=== PATIENT | male | born 2005 | race Caucasian/White ===

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

== ENCOUNTER 2024-10-19 12:34 | Emergency (ER) | payer SELFPAY ==
[2024-10-19 12:35] VITALS: BP 145/80; PULSE 98; RESP 16; TEMP 36.3; O2SAT 99; BMI 27.1
[2024-10-19] MEDS: Diphth,Pertuss(Acell),Tet Vac 0.5 ML Vial IM (14:00)
--- NOTE | 2024-10-19 14:03 | RAD_ITS ---
PROCEDURE: FINGER(S) MIN 2 VIEWS REASON FOR EXAM: Injury TECHNIQUE: 3 view(s) of the left 3rd finger COMPARISON: None FINDINGS: No visible fracture. Normal alignment. Soft tissues are unremarkable. RAD/Finger(s) Min 2 Views IMPRESSION: No acute osseous abnormality of the left 3rd finger Reading Location: [facility]
--- NOTE | 2024-10-19 14:08 | EDS_ITS ---
<Statement entered by Sundeep Santoyo DO - 10/19/24 15:52> Patient was seen and examined with nurse chad Bain All components of the history and physical confirmed and agreed. History of present illness and physical exam: Patient is a 19-year-old male with no known significant past medical history who presents to the emergency department with chief complaint of injury to the left third finger. He states that he was using a table saw and states that he got his finger caught and cut on the table saw. He states that he does not know when his last tetanus shot was. Patient states that his significant other wanted him to come here to be evaluated. Review of systems: Agree with above Physical exam: Agree with above will add on patient was able to be the okay sign thumbs up and oppose his thumb to his pinky is bilateral without difficulty he is able to abduct adduct his fingers fully flex and extend his fingers bilaterally. Patient has sensation gross intact in median ulnar and radial nerve distributions. MDM Patient is a 19-year-old male who presented to the emerged part with chief complaint of left third finger injury by cutting it on a table saw. On the differential diagnose includes Melamin to skin abrasion, laceration, fracture. Once workup is obtained reviewed he will be reevaluated. Patient's x-ray reviewed by myself by radiology showed no acute osseous abnormality of third finger. Patient's tetanus shot was updated here today. Patient was advised to do Dreft soaks 2-3 times a day and watch out for signs of infection. He is advised to keep this area dry and clean. He is encouraged to follow-up with primary care physician outpatient setting. He was advised that this will heal over time. He was referred to a physician. He is encouraged return to worsening symptoms or concerns. He is agreeable this plan all question concerns answered he is discharged home in stable condition. Final impression: Left third finger abrasion Tetanus shot updated Disposition: Patient will be discharged home in stable condition Supervising attending attestation: Sundeep Santoyo [facility] History of Present Illness Chief Complaint: Laceration Narrative Narrative:
--- NOTE | 2024-10-19 14:08 | EX.ED.DYSGE1 ---
HPI History of Present Illness Chief Complaint: Laceration Narrative Narrative: 19-year-old male with no significant history presents to the emergency department with complaints of injury to the tip of the left third finger. Patient was using a table saw, states he was hurrying and clipped at the tip of his finger. Patient's tetanus vaccination is unknown. Patient has full range of motion. Bleeding is controlled. Here for evaluation. PFS PFS Medical History no medical history Home Medications ?Medication ?Instructions ?Recorded ?Last Taken ?Type No Known/Unobtainable [No Known 02/10/16 Unknown History Home Medications] Allergy/AdvReac Type Severity Reaction Status Date / Time amoxicillin Allergy Hives Verified 02/10/16 00:00 azithromycin (From Zithromax) AdvReac IT JUST Verified 05/17/20 16:36 DOESN'T WORK Social History (Updated 11/24/20 @ 15:11 by Kannan MEEKS, PA) Smoking Status: Never smoker ROS ROS ED ROS Narrative Constitutional: Negative for fever, chills, weight loss, weakness Eyes: Negative for vision loss, vision change, double vision ENT: Negative for any sore throat, ear pain, congestion Cardiovascular: Negative for any chest pain, tightness, palpitations Respiratory: Negative for any cough, sputum production, hemoptysis, dyspnea, dyspnea on exertion, orthopnea Gastrointestinal: Negative for any abdominal pain, nausea, vomiting, diarrhea, constipation, blood in stool, blood in vomit : Negative for any urinary frequency, dysuria, retention, blood in urine Muscle skeletal: Negative for any neck pain, back pain. Positive for left third finger pain Neurological: Negative for any headache, syncope, dizziness Skin: Negative for any rashes, itching, abrasions, lacerations Psychiatric: Negative for any depression, anxiety, stress, suicidal ideation, homicidal ideation Hematologic: Negative for any excessive bruising, easy bleeding EXAM Physical Exam Narrative Exam Narrative: Vital signs reviewed. Extremities: Patient is obvious signs of trauma to the distal third finger on the left hand. The base of the nail is intact, patient has more of an avulsion like laceration. There is no bony exposure. There is no significant bleeding. No neurological focal deficits. Full range of motion Neuro: Cranial nerves II through XII intact, no focal neurological deficits. Skin: Clean dry and intact with no rash, purpura, petechiae, vesicles or pustules. Backs/flank: No CVA tenderness, no midline spinal tenderness, no deformity. Psych: Normal mood and affect. No SI, HI or acute psychosis. Const Vital Signs: 10/19/24 12:35 Temperature 97.4 F L Temperature Source Temporal Pulse Rate 98 Respiratory Rate 16 Blood Pressure 145/80 H Blood Pressure Mean 101 Pulse Ox 99 Oxygen Delivery Method Room Air MDM MDM Radiography Diagnostic Testing: Clinical Impression(s) from Imaging Studies Finger X-Ray 10/19/24 14:03 IMPRESSION: No acute osseous abnormality of the left 3rd finger [facility] Treatment and Re-Evaluation :: Differential diagnosis includes however is not limited to: Simple laceration, avulsion like laceration, open fracture, tuft fracture, nailbed injury Patient appears generally well, vital signs are stable, patient is nontoxic-appearing. Presenting to the emergency department after injuring the left third finger. Patient will receive x-rays of the left third finger to rule out any tuft fracture or open fracture. Patient's wound will be cleansed and soapy warm water. Tdap will be updated today. All radiologic examinations were read, reviewed by the emergency department attending. From these reads, a plan of care will be put in place. Patient's x-ray was negative for any acute process. At this time, there is no significant laceration to be sewn. Patient wound was cleaned and dressed. No intervention else is needed. Patient was updated on tetanus vaccination today. Patient to keep the area clean and dry. Return for any worsening symptoms. Patient stable for discharge. Discharge Plan Triage Chief Complaint: Laceration ED Midlevel Provider: Odell Bernabe ED Provider: Sundeep Santoyo Dx/Rx/DC Orders Clinical Impression: Finger laceration Instructions: ED Laceration, All Closures, ED Laceration, Hand: All Closures Prescriptions: No Action No Known Home Medications Primary Care Provider: Care Physician,No Primary Referrals: Stefania [Other] Skyla Spicer MD [Med Staff - Customer Service Correspondence Clerk] - Care Physician,No Primary [Primary Care Provider] - Activity Restrictions/Additional Instructions: Keep the area clean and dry. Print Language: Belgian Disposition Disposition: Home, Self Care
--- NOTE | 2024-10-19 14:11 | ED.RN ---
SOAKING PT HAND IN WARM SOAPY WATER
== END 2024-10-19 15:11 | disposition home or self-care (01) ==
PROVIDERS: Emergency Provider Emergency Medicine; Visit Provider Emergency Medicine
DX: S61.213A Laceration without foreign body of left middle finger without damage to nail, initial encounter (principal); W31.2XXA Contact with powered woodworking and forming machines, initial encounter; Z23 Encounter for immunization
CPT/HCPCS: 73140; 90471; 90715; 99282